=== PATIENT | female | born 1965 | race Two or more races ===

== ENCOUNTER 2022-02-15 10:15 | Inpatient (IN) | payer OTHER ==
[~2022-02-15] VITALS: Ht 160 cm; Wt 75.3 kg
[2022-02-23] MEDS ORDERED: LEVSIN/SL0.125 MG SL (15:01)
[2022-02-23] MEDS ORDERED: PERCOCET 5-3251 EACH PO (15:01)
== END 2022-02-23 17:30 | disposition home or self-care (01) | DRG 330 ==
LOC: O/R 02-20 05:05 → SURH 02-20 05:05 → SURG 02-20 10:15 → SURH 02-20 10:19 → SURG 02-20 11:00 → SURH 02-23 17:30
PROVIDERS: ADMIT Surgery; ATTEND Surgery
PROC: 0DBU4ZZ Excision of Omentum, Percutaneous Endoscopic Approach (ICD-10-PCS; 2022-02-20)
PROC: 07BB4ZZ Excision of Mesenteric Lymphatic, Percutaneous Endoscopic Approach (ICD-10-PCS; 2022-02-20)
PROC: 0DTF4ZZ Resection of Right Large Intestine, Percutaneous Endoscopic Approach (ICD-10-PCS; principal; 2022-02-20 11:00)
DX: D12.2 Benign neoplasm of ascending colon (principal); K92.1 Melena; R59.0 Localized enlarged lymph nodes